=== PATIENT | male | born 1985 | race Two or more races ===

== ENCOUNTER → 2022-08-21 | Emergency (ER) | payer OTHER ==
[~2022-08-21] VITALS: Ht 175.3 cm; Wt 73.5 kg
[~2022-08-21] MED LIST: ONDANSETRON ODT8 MG PO; PEPCID AC20 MG PO
== END | disposition home or self-care (01) ==
LOC: ER 11:57
DX: K52.9 Noninfective gastroenteritis and colitis, unspecified (principal); Z20.822 Contact with and (suspected) exposure to COVID-19